=== PATIENT | male | born 1985 | race Caucasian/White ===

== ENCOUNTER 2023-05-02 18:19 | Emergency (ER) | payer OTHER ==
[~2023-05-02 18:19] MED LIST: Iopamidol 300 61% 100 ML VIAL FS ONE
[2023-05-02 20:51] LABS: #Basophils 0.1 10x3/uL (0.0-0.2); #Eosinphils 0.1 10x3/uL (0.0-0.5); #Monocytes 0.4 10x3/uL (0.0-1.1); #Neutrophils 3.7 10x3/uL (1.5-8.4); %Basophils 0.9 % (0.0-2.0); %Eosinophils 1.4 % (0.0-6.0); %Monocytes 7.6 % (0.0-10.0); %Neutrophils 65.9 % (40.0-75.0); Hemoglobin 11.4 g/dL (13.5-17.5); Mean Corpuscular Volume 77.5 fl (81.2-95.1); Mean Platelet Volume 10.6 fl (7.4-10.4); Platelet Count 313 10x3/uL (150-450); Red Blood Cell (RBC) Count 4.75 10x6/uL (4.32-5.72); White Blood Cell (WBC) Count 5.5 10x3/uL (3.5-10.5)
[2023-05-02 21:38] LABS: ALT (SGPT) 40 U/L (8-55); AST (SGOT) 27 U/L (5-34); Albumin 4.2 g/dL (3.5-5.0); Alkaline Phosphatase 61 U/L (40-110); Anion Gap 11 mmol/L (10-20); BUN (Urea Nitrogen) 9 mg/dL (8.9-20.6); Bilirubin, Total 0.2 mg/dL (0.2-1.2); Calc. Creatinine Clearance 0 mL/min (70-130); Calcium 8.5 mg/dL (7.8-10.44); Carbon Dioxide 25 mmol/L (22-29); Chloride 107 mmol/L (98-107); Estimated GFR 111; Globulin 2.5 g/dL (2.4-3.5); Glucose 98 mg/dL (70-105); Lipase 43 U/L (8-78); Potassium 3.2 mmol/L (3.5-5.1); Protein, Total 6.7 g/dL (6.0-8.3); Sodium 140 mmol/L (136-145)
== END 2023-05-02 21:40 | disposition home or self-care (01) ==
LOC: CSHERS 18:19
DX: G89.18 Other acute postprocedural pain (principal); R10.9 Unspecified abdominal pain; R11.2 Nausea with vomiting, unspecified; R19.7 Diarrhea, unspecified; I25.2 Old myocardial infarction; I10 Essential (primary) hypertension
CPT/HCPCS: 74177; 80053; 83605; 83690; 85025; Q9967

== ENCOUNTER 2023-06-12 00:59 | Emergency (ER) | payer OTHER ==
[2023-06-12 02:33] LABS: #Eosinphils 0.1 10x3/uL (0.0-0.5); #Monocytes 0.4 10x3/uL (0.0-1.1); %Basophils 0.6 % (0.0-2.0); %Eosinophils 2.2 % (0.0-6.0); %Lymphocytes 28.4 % (18.0-47.0); %Monocytes 7.2 % (0.0-10.0); Hemoglobin 11.7 g/dL (13.5-17.5); Mean Corpuscular HGB CONC 32.5 g/dL (32.0-36.0); Mean Corpuscular Hemoglobin 25.1 pg (27.0-33.0); Mean Corpuscular Volume 77.3 fl (81.2-95.1); Mean Platelet Volume 10.4 fl (7.4-10.4); Platelet Count 273 10x3/uL (150-450); RBC Distribution Width 17.2 % (11.5-14.5); Red Blood Cell (RBC) Count 4.66 10x6/uL (4.32-5.72)
[2023-06-12 02:46] LABS: ALT (SGPT) 41 U/L (8-55); AST (SGOT) 25 U/L (5-34); Albumin 3.9 g/dL (3.5-5.0); Alkaline Phosphatase 70 U/L (40-110); Anion Gap 15 mmol/L (10-20); BUN (Urea Nitrogen) 12 mg/dL (8.9-20.6); Bilirubin, Total 0.2 mg/dL (0.2-1.2); Calc. Creatinine Clearance 0 mL/min (70-130); Calcium 9.1 mg/dL (7.8-10.44); Carbon Dioxide 23 mmol/L (22-29); Chloride 108 mmol/L (98-107); Estimated GFR 111; Globulin 2.6 g/dL (2.4-3.5); Glucose 129 mg/dL (70-105); Potassium 3.7 mmol/L (3.5-5.1); Protein, Total 6.5 g/dL (6.0-8.3); Sodium 142 mmol/L (136-145)
[2023-06-12 02:52] LABS: Troponin I Less than 0.010 ng/mL (< 0.028)
[2023-06-12] MEDS ORDERED: methylPREDNISolone Sod Succ/PF 125 MG/2 ML VIAL ONE (03:23)
[2023-06-12] MEDS ORDERED: Ondansetron PF 4 MG/2 ML Vial ONE (03:23)
[2023-06-12 05:37] LABS: Troponin I Less than 0.010 ng/mL (< 0.028)
[2023-06-12] MEDS ORDERED: Iopamidol 370 76% 100 ML VIAL ONE (12:21)
== END 2023-06-12 06:01 | disposition home or self-care (01) ==
LOC: CSHERS 00:59
DX: J84.114 Acute interstitial pneumonitis (principal); R07.9 Chest pain, unspecified; I10 Essential (primary) hypertension; Z79.899 Other long term (current) drug therapy
CPT/HCPCS: 36415; 71045; 71275; 80053; 84484; 85025; 93005; 96374; 96375; J2405; J2930; Q9967